=== PATIENT | female | born 2000 | race Caucasian/White ===

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

== ENCOUNTER → 2019-07-08 | Outpatient (CLI) | payer BC ==
--- NOTE | 2019-07-09 11:35 | US ---
EXAMINATION TYPE: US extremity nonvasc mass LT DATE OF EXAM: 07/08/2019 COMPARISON: NONE CLINICAL HISTORY: M79.672 pain of left heel. Palpable left heel more prominent than right heel palpab le and pain with walking. US left heel: Solid mass noted with hypoechoic borders at c/o palpable = 1.4 x 1.2 x 0.8cm. Right he el is compared at same level and solid mass is also noted with hypoechoic borders = 1.5 x 1.8 x 0.6cm . IMPRESSION: Solid-appearing mass measuring 1.4 cm of the palpable abnormality of the left heel. A si milar 1.5 cm x 1.8 cm mass is seen along the right heel. Correlate with surgical consultation.
== END | disposition home or self-care (01) ==
LOC: RADUSMAIN 17:49
PROVIDERS: ATTEND Student in an Organized Health Care Education/Training Program
DX: R22.42 Localized swelling, mass and lump, left lower limb (principal); Z91.018 Allergy to other foods